=== PATIENT | male | born 1965 | race Caucasian/White ===

== ENCOUNTER 2016-11-18 18:08 | Observation (INO) | payer SELFPAY ==
[~2016-11-18] VITALS: Ht 180.3 cm; Wt 85.0 kg
[~2016-11-18 18:08] MED LIST: AMLO5TAB2 PO; ASPI81TA81 PO; ATOR40TA16 PO; BAYEMIS; CARV6.252 PO; GLUCTES27; METF500 PO; NITR1SUB3 SL; PLAV75TA29 PO; SERO400T PO; TRAZ150T75 PO; VIST50CA PO
[2016-11-18 18:22] VITALS: BP 156/97; PULSE 92; RESP 15; TEMP 99.8; O2SAT 98
[2016-11-18 18:24] VITALS: BP 156/97; PULSE 89; RESP 16; TEMP 99.8; O2SAT 98
[2016-11-18] MEDS ORDERED: ASPIRIN 325 MG TAB PO ONE (18:30)
[2016-11-18] MEDS ORDERED: SODIUM CHLORIDE 0.9% FLUSH 10 ML FLUSH IVF PRN (18:30)
[2016-11-18] MEDS ORDERED: NITROGLYCERIN 0.4 MG SL 25 TABS/BTL SL ONE (18:30)
[2016-11-18 18:34] VITALS: BP_SYST 152; BP_SYST 156; BP_DIAS 94; BP_DIAS 97; PULSE 89; RESP 16; TEMP 99.8; O2SAT 98
--- NOTE | 2016-11-18 19:00 | PD ---
HPI Chief Complaint: Chest Pain Time Seen by Provider: 18:55 Travel History International Travel<30 days: No Contact w/Intl Traveler<30days: No Traveled to known affect area: No History of Present Illness HPI 51-year-old male that presents to the ED for evaluation of chest pain. Patient comes here by bolus for evaluation of this. Patient has a chronic history of bipolar disorder, ACS with previous stents and A. fib. Per patient she also has a history of high blood pressure and high cholesterol. Per patient she also takes Plavix. States compliance with medications. Do not take an aspirin today. Per patient he said issues with nitroglycerin before when he drops his blood pressure too much. He prefers not to have it. Patient states that he continues to have the chest pain which is pressure-like. Does not radiate. No shortness of breath. No headache. No blurry vision or double vision. No numbness, tilling, weakness. Has no allergies to medication. States that the pain is severe 7 out of 10.*On 4:00 today. He has no machine icer as he states that he cannot get a machine icer because he has no insurance. PFSH Past Medical History Hx Anticoagulant Therapy: Yes Atrial Fibrillation: Yes (HX OF) Blood Disorders: No Bipolar Disorder: Yes Anxiety: Yes Depression: Yes Heart Rhythm Problems: Yes (a fib in the past) Cancer: Yes (skin - rt cheek squamous) Cardiac Catheterization: Yes (stents) Cardiovascular Problems: Yes High Cholesterol: Yes Chemotherapy: No Chest Pain: Yes Congestive Heart Failure: No Cerebrovascular Accident: Yes (2013) Diabetes: Yes (METFORMIN ) Patient Takes Glucophage: No Diminished Hearing: No Endocrine: Yes Gastrointestinal Disorders: No Genitourinary: No Hypertension: Yes Immune Disorder: No Inguinal Hernia: Yes Implanted Vascular Access Dvce: Yes (CARDIAC STENT) Insomnia: Yes Musculoskeletal: Yes (CHRONIC BACK PAIN) Neurologic: Yes ([id number]) Psychiatric: Yes (BIPOLAR/ANGER DISORDER) Reproductive: No Respiratory: No Immunizations Current: No (PT REFUSES ) Myocardial Infarction: Yes (X1) Radiation Therapy: No Triglycerides - High: Yes Past Surgical History Abdominal Surgery: Yes (lap hernia repair w/ mesh 2012 ) Body Medical Devices: mesh from hernia repair Cardiac Surgery: No Coronary Artery Bypass Graft: No Coronary Stent: Yes (X2) Pacemaker: Yes Other Surgery: Yes (HERNIA REPAIR) Social History Alcohol Use: No Tobacco Use: No (VAPORIZER) Substance Use: No Allergies-Medications (Allergen,Severity, Reaction): Coded Allergies: No Known Allergies (Unverified , 11/18/16) Reported Meds & Prescriptions Reported Meds & Active Scripts Active Amlodipine (Amlodipine Besylate) 5 Mg Tab 5 Mg PO DAILY Carvedilol 6.25 Mg Tab 6.25 Mg PO BID Atorvastatin (Atorvastatin Calcium) 40 Mg Tab 40 Mg PO HS Plavix (Clopidogrel Bisulfate) 75 Mg Tab 75 Mg PO DAILY Reported Nitro-Time (Nitroglycerin) Unknown Strength Caper Unknown Dose PO DAILY Clonazepam 0.5 Mg Tab 0.5 Mg PO BID PRN [place] Carbonate 300 Mg Cap 300 Mg PO TID Trazodone (Trazodone HCl) 300 Mg Tab 300 Mg PO HS Aspir-81 (Aspirin) 81 Mg Tabdr 81 Mg PO HS Seroquel (Quetiapine Fumarate) 400 Mg Tab 400 Mg PO BID Review of Systems Except as stated in HPI: all other systems reviewed are Neg Physical Exam Narrative GENERAL: SKIN: Warm and dry. HEAD: Atraumatic. Normocephalic. EYES: Pupils equal and round. No scleral icterus. No injection or drainage. ENT: No nasal bleeding or discharge. Mucous membranes pink and moist. Tongue is midline. No uvula deviation. NECK: Trachea midline. No JVD. CARDIOVASCULAR: Regular rate and rhythm. No murmurs, S3, S4. Chest pain is not reproducible with touch. RESPIRATORY: No accessory muscle use. Clear to auscultation. Breath sounds equal bilaterally. GASTROINTESTINAL: Abdomen soft, non-tender, nondistended. Hepatic and splenic margins not palpable. MUSCULOSKELETAL: Extremities without clubbing, cyanosis, or edema. No obvious deformities. Full range of motion of the upper and lower extremities bilaterally. 2+ pulses bilaterally. NEUROLOGICAL: Awake and alert. No obvious cranial nerve deficits. Motor grossly within normal limits. Five out of 5 muscle strength in the arms and legs. Normal speech. PSYCHIATRIC: Appropriate mood and affect; insight and judgment normal. Data Data Last Documented VS Vital Signs Date Time Temp Pulse Resp B/P Pulse Ox O2 Delivery O2 Flow Rate FiO2 11/18/16 18:34 99.8 89 16 156/97 98 Room Air 152/94 Orders Electrocardiogram (11/18/16 18:18) Basic Metabolic Panel (Bmp) (11/18/16 18:18) Ckmb (Isoenzyme) Profile (11/18/16 18:18) Complete Blood Count With Diff (11/18/16 18:18) Magnesium (Mg) (11/18/16 18:18) Prothrombin Time / Inr (Pt) (11/18/16 18:18) Act Partial Throm Time (Ptt) (11/18/16 18:18) Troponin I (11/18/16 18:18) Lipase (11/18/16 18:18) Chest, Single Ap (11/18/16 18:18) Ecg Monitoring (11/18/16 18:18) Bilateral Bp Monitoring (11/18/16 18:18) Iv Access Insert/Monitor (11/18/16 18:18) Oximetry (11/18/16 18:18) Oxygen Administration (11/18/16 18:18) Aspirin (Aspirin) (11/18/16 18:30) Sodium Chloride 0.9% Flush (Ns Flush) (11/18/16 18:30) Nitroglycerin Sl (Nitrostat Sl) (11/18/16 18:30) [place] (Li) (11/18/16 18:26) CKMB (11/18/16 18:50) CKMB% (11/18/16 18:50) Admit Order (Ed Use Only) (11/18/16 19:39) Activity Bed Rest With Brp (11/18/16 19:39) Vital Signs (Adult) Q4H (11/18/16 19:39) Cardiac Rhythm .As Directed (11/18/16 19:39) Notify Dr: Other .PRN (11/18/16 19:39) Notify DrAsael Parameters (11/18/16 19:39) Resp Oxygen Nasal Cannula (11/18/16 ) Ckmb (Isoenzyme) Profile (11/18/16 21:50) Ckmb (Isoenzyme) Profile (11/19/16 00:50) Troponin I (11/18/16 21:50) Troponin I (11/19/16 00:50) Electrocardiogram (11/18/16 21:50) Electrocardiogram (11/19/16 00:50) ^ Obtain (11/18/16 19:39) Sodium Chloride 0.9% Flush (Ns Flush) (11/18/16 19:45) Sodium Chloride 0.9% Flush (Ns Flush) (11/18/16 21:00) Acetaminophen (Tylenol) (11/18/16 19:45) Acetamin-Hydrocod 325-7.5 Mg ([place] 7.5 (11/18/16 19:45) Ondansetron Inj (Zofran Inj) (11/18/16 19:45) Finger Grip Machine Operator / Telemetry CONRADO.Q8H (11/18/16 19:39) Labs Laboratory Tests Test 11/18/16 18:50 White Blood Count 14.5 TH/MM3 Red Blood Count 4.95 MIL/MM3 Hemoglobin 15.5 GM/DL Hematocrit 44.8 % Mean Corpuscular Volume 90.4 FL Mean Corpuscular Hemoglobin 31.4 PG Mean Corpuscular Hemoglobin 34.7 % Concent Red Cell Distribution Width 14.0 % Platelet Count 287 TH/MM3 Mean Platelet Volume 8.3 FL Neutrophils (%) (Auto) 69.2 % Lymphocytes (%) (Auto) 22.7 % Monocytes (%) (Auto) 6.7 % Eosinophils (%) (Auto) 0.7 % Basophils (%) (Auto) 0.7 % Neutrophils # (Auto) 10.0 TH/MM3 Lymphocytes # (Auto) 3.3 TH/MM3 Monocytes # (Auto) 1.0 TH/MM3 Eosinophils # (Auto) 0.1 TH/MM3 Basophils # (Auto) 0.1 TH/MM3 CBC Comment DIFF FINAL Differential Comment Prothrombin Time 10.6 SEC Prothromb Time International 1.0 RATIO Ratio Activated Partial 27.2 SEC Thromboplast Time Sodium Level 133 MEQ/L Potassium Level 3.6 MEQ/L Chloride Level 102 MEQ/L Carbon Dioxide Level 25.1 MEQ/L Anion Gap 6 MEQ/L Blood Urea Nitrogen 8 MG/DL Creatinine 0.99 MG/DL Estimat Glomerular Filtration 80 ML/MIN Rate Random Glucose 192 MG/DL Calcium Level 9.4 MG/DL Magnesium Level 2.0 MG/DL Total Creatine Kinase 186 U/L Creatine Kinase MB 1.3 NG/ML Troponin I LESS THAN 0.02 NG/ML Lipase 327 U/L [place] Level 0.3 MEQ/L MDM Medical Decision Making Medical Screen Exam Complete: Yes Emergency Medical Condition: Yes Medical Record Reviewed: Yes Interpretation(s) EKG shows sinus rhythm with no sign of acute ischemia or arrhythmia read by me and attending. CBC & BMP Diagram 11/18/16 18:50 Lipase WNL Troponin and CKMB negative Last Impressions Chest X-Ray 11/18/168 Signed Impressions: Service Date/Time: Sunday, November 18, 2016 18:50 - CONCLUSION: No acute cardiopulmonary disease. Bubba Salinas MD Differential Diagnosis Chest pain versus a typical chest pain versus ACS versus pneumonia versus costochondritis versus angina Narrative Course 51-year-old male that presents to the ED for evaluation of chest pain. Patient was properly examined and was found to have signs and symptoms consistent with appears to be chest pain. Concerning for ACS. Labs and imaging were ordered. Patient was given aspirin here. Labs and imaging showed no sign of acute disease. Patient was reassured. At this time I do recommend admission to chest pain center for further workup. Patient does have risk factors including previous coronary artery disease, diabetes, hypertension, age, hyperlipidemia. Patient agrees to admission to the chest pain center. My attending Dr. Olsen evaluated the patient with me and agrees with admission. Diagnosis Primary Impression: Chest pain Qualified Code: R07.9 - Chest pain, unspecified type Admitting Information Admitting Physician Requests: Marvin Herzog Nov 18, 2016 19:00
[2016-11-18 19:10] LABS: BASOPHIL # 0.1 TH/MM3 (0-0.2); BASOPHIL % 0.7 % (0.0-2.0); EOSINOPHIL # 0.1 TH/MM3 (0-0.4); EOSINOPHIL % 0.7 % (0.0-4.0); HEMATOCRIT 44.8 % (39.0-51.0); HEMO FLAGS DIFF FINAL; LYMPH % 22.7 % (9.0-44.0); LYMPHOCYTE # 3.3 TH/MM3 (1.0-4.8); MEAN CELL VOLUME 90.4 FL (80.0-100.0); MEAN CORPUSCULAR HEMOGLOBIN 31.4 PG (27.0-34.0); MEAN CORPUSCULAR HGB CONC 34.7 % (32.0-36.0); MONO % 6.7 % (0.0-8.0); NEUT % 69.2 % (16.0-70.0); PLATELET COUNT 287 TH/MM3 (150-450); RED BLOOD COUNT 4.95 MIL/MM3 (4.50-5.90); WHITE BLOOD COUNT 14.5 TH/MM3 (4.0-11.0)
[2016-11-18] MEDS ORDERED: LITH300C2 PO (19:10)
[2016-11-18] MEDS ORDERED: TRAZ300T2 PO (19:10)
[2016-11-18] MEDS ORDERED: CLON0.5T PO (19:11)
[2016-11-18] MEDS ORDERED: NITR9CAP PO (19:12)
[2016-11-18 19:20] LABS: APTT (PATIENT) 27.2 SEC (24.3-30.1); PROTHROMBIN TIME - PATIENT 10.6 SEC (9.8-11.6)
[2016-11-18 19:22] LABS: ANION GAP 6 MEQ/L (5-15); BICARBONATE 25.1 MEQ/L (21.0-32.0); BLOOD UREA NITROGEN 8 MG/DL (7-18); CHLORIDE 102 MEQ/L (98-107); GLOMERULAR FILTRATION RATE 80 ML/MIN (>89); POTASSIUM 3.6 MEQ/L (3.5-5.1); SODIUM (NA) 133 MEQ/L (136-145)
[2016-11-18 19:27] LABS: CREATINE KINASE 186 U/L (39-308)
--- NOTE | 2016-11-18 19:35 | RADRPT ---
EXAM DATE/TIME: 11/18/2016 18:50 [facility] COMPARISON: CHEST SINGLE AP, March 28, 2016, 8:57. INDICATIONS : Chest Pain MEDICAL HISTORY : Stroke. Myocardial infarction. SURGICAL HISTORY : Coronary artery stent. ENCOUNTER: Initial ACUITY: 1 day PAIN SCORE: 7/10 LOCATION: Bilateral chest FINDINGS: The lungs are clear without infiltrate, nodule, or mass. There is no appreciable pleural effusion fo r technique. Heart and mediastinum are unremarkable. CONCLUSION: No acute cardiopulmonary disease. Bubba Salinas MD on November 18, 2016 at 19:34 Board Certified Radiologist. This report was verified electronically.
[2016-11-18 19:40] LABS: CKMB 1.3 NG/ML (0.5-3.6)
[2016-11-18] MEDS ORDERED: ACETAMINOPHEN 500 MG CPLT PO PRN (19:45)
[2016-11-18] MEDS ORDERED: SODIUM CHLORIDE 0.9% FLUSH 10 ML FLUSH IV FLUSH PRN (19:45)
[2016-11-18] MEDS ORDERED: ACETAMINOPHEN/HYDROcodone 325 MG/7.5 MG TAB PO PRN (19:45)
[2016-11-18] MEDS ORDERED: ONDANSETRON HCL 4 MG/2 ML VIAL IV PRN (19:45)
--- NOTE | 2016-11-18 19:53 | PD ---
Data Data Last Documented VS Vital Signs Date Time Temp Pulse Resp B/P Pulse Ox O2 Delivery O2 Flow Rate FiO2 11/18/16 18:34 99.8 89 16 156/97 98 Room Air 152/94 Orders Electrocardiogram (11/18/16 18:18) Basic Metabolic Panel (Bmp) (11/18/16 18:18) Ckmb (Isoenzyme) Profile (11/18/16 18:18) Complete Blood Count With Diff (11/18/16 18:18) Magnesium (Mg) (11/18/16 18:18) Prothrombin Time / Inr (Pt) (11/18/16 18:18) Act Partial Throm Time (Ptt) (11/18/16 18:18) Troponin I (11/18/16 18:18) Lipase (11/18/16 18:18) Chest, Single Ap (11/18/16 18:18) Ecg Monitoring (11/18/16 18:18) Bilateral Bp Monitoring (11/18/16 18:18) Iv Access Insert/Monitor (11/18/16 18:18) Oximetry (11/18/16 18:18) Oxygen Administration (11/18/16 18:18) Aspirin (Aspirin) (11/18/16 18:30) Sodium Chloride 0.9% Flush (Ns Flush) (11/18/16 18:30) Nitroglycerin Sl (Nitrostat Sl) (11/18/16 18:30) [place] (Li) (11/18/16 18:26) CKMB (11/18/16 18:50) CKMB% (11/18/16 18:50) Admit Order (Ed Use Only) (11/18/16 19:39) Activity Bed Rest With Brp (11/18/16 19:39) Vital Signs (Adult) Q4H (11/18/16 19:39) Cardiac Rhythm .As Directed (11/18/16 19:39) Notify Dr: Other .PRN (11/18/16 19:39) Notify Parameters (11/18/16 19:39) Resp Oxygen Nasal Cannula (11/18/16 ) Ckmb (Isoenzyme) Profile (11/18/16 21:50) Ckmb (Isoenzyme) Profile (11/19/16 00:50) Troponin I (11/18/16 21:50) Troponin I (11/19/16 00:50) Electrocardiogram (11/18/16 21:50) Electrocardiogram (11/19/16 00:50) ^ Obtain (11/18/16 19:39) Sodium Chloride 0.9% Flush (Ns Flush) (11/18/16 19:45) Sodium Chloride 0.9% Flush (Ns Flush) (11/18/16 21:00) Acetaminophen (Tylenol) (11/18/16 19:45) Acetamin-Hydrocod 325-7.5 Mg ([place] 7.5 (11/18/16 19:45) Ondansetron Inj (Zofran Inj) (11/18/16 19:45) Contact Center Representative / Telemetry CONRADO.Q8H (11/18/16 19:39) Labs Laboratory Tests Test 11/18/16 18:50 White Blood Count 14.5 TH/MM3 Red Blood Count 4.95 MIL/MM3 Hemoglobin 15.5 GM/DL Hematocrit 44.8 % Mean Corpuscular Volume 90.4 FL Mean Corpuscular Hemoglobin 31.4 PG Mean Corpuscular Hemoglobin 34.7 % Concent Red Cell Distribution Width 14.0 % Platelet Count 287 TH/MM3 Mean Platelet Volume 8.3 FL Neutrophils (%) (Auto) 69.2 % Lymphocytes (%) (Auto) 22.7 % Monocytes (%) (Auto) 6.7 % Eosinophils (%) (Auto) 0.7 % Basophils (%) (Auto) 0.7 % Neutrophils # (Auto) 10.0 TH/MM3 Lymphocytes # (Auto) 3.3 TH/MM3 Monocytes # (Auto) 1.0 TH/MM3 Eosinophils # (Auto) 0.1 TH/MM3 Basophils # (Auto) 0.1 TH/MM3 CBC Comment DIFF FINAL Differential Comment Prothrombin Time 10.6 SEC Prothromb Time International 1.0 RATIO Ratio Activated Partial 27.2 SEC Thromboplast Time Sodium Level 133 MEQ/L Potassium Level 3.6 MEQ/L Chloride Level 102 MEQ/L Carbon Dioxide Level 25.1 MEQ/L Anion Gap 6 MEQ/L Blood Urea Nitrogen 8 MG/DL Creatinine 0.99 MG/DL Estimat Glomerular Filtration 80 ML/MIN Rate Random Glucose 192 MG/DL Calcium Level 9.4 MG/DL Magnesium Level 2.0 MG/DL Total Creatine Kinase 186 U/L Creatine Kinase MB 1.3 NG/ML Troponin I LESS THAN 0.02 NG/ML Lipase 327 U/L [place] Level 0.3 MEQ/L MDM Supervised Visit with CHANO: Yes Narrative Course I, Dr. Olsen, have reviewed the advance practice practioner's documentation and am in agreement, met with the patient face to face, made the diagnosis, and the medical decision making was done by me. *My assessment and Findings: 51-year-old male with history of CAD with PCI 2, A. fib here with complaint of chest pain, primarily left-sided radiating up into his left shoulder and neck, slightly down to his left bicep region. This started approximately 4 PM today and is similar to his to previous heart attacks. Patient takes a long-acting nitroglycerin but does not have any short acting nitroglycerin at home. 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 Regular rate and rhythm, clear to auscultation bilaterally, no reproducible tenderness palpation on exam. Differential includes ACS, stable angina, atypical chest pain, anxiety and less likely PE or dissection. EKG shows sinus rhythm without notable ST or T-wave abnormalities and normal intervals. Laboratory workup unremarkable. Given patient's history Will admit to chest pain center [id number] troponins, EKG and provocative testing. Diagnosis Primary Impression: Chest pain Qualified Code: R07.9 - Chest pain, unspecified type Dana Olsen MD Nov 18, 2016 19:53
[2016-11-18] MEDS: SODIUM CHLORIDE 0.9% FLUSH 10 ML FLUSH IV FLUSH SCH (20:55)
[2016-11-18 21:00] VITALS: BP 124/85; PULSE 80; RESP 18; O2SAT 98
[2016-11-18] MEDS ORDERED: NITROGLYCERIN 2% OINT 1 GM PACKET TOPICAL ONE (21:15)
[2016-11-18 21:17] VITALS: BP 143/96; PULSE 81; RESP 18; TEMP 97.1; O2SAT 95
[2016-11-18 22:28] LABS: CREATINE KINASE 165 U/L (39-308)
[2016-11-18 22:40] LABS: CKMB 1.2 NG/ML (0.5-3.6)
[2016-11-18 23:46] VITALS: BP 136/84; PULSE 73; RESP 18; TEMP 97.5; O2SAT 96
[2016-11-19] VITALS (7 sets, daily range): BP systolic 117–132; BP diastolic 73–84; PULSE 68–80; RESP 17–19; TEMP 98–98.1; O2SAT 94–97
[2016-11-19] MEDS ORDERED: LITHIUM CARBONATE 300 MG TAB PO ONE (00:30)
[2016-11-19] MEDS ORDERED: traZODone HCL 100 MG TAB PO ONE (00:30)
[2016-11-19] MEDS ORDERED: QUEtiapine FUMARATE 200 MG TAB PO ONE (00:30)
[2016-11-19] MEDS ORDERED: clonazePAM 0.5 MG TAB PO ONE ×2 (00:30→11:45)
[2016-11-19 03:15] LABS: CREATINE KINASE 160 U/L (39-308)
[2016-11-19 03:27] LABS: CKMB 1.2 NG/ML (0.5-3.6)
--- NOTE | 2016-11-19 08:35 | HHI.HP ---
HPI Primary Care Physician No Primary Care Physician Chief Complaint Chest pain History of Present Illness 51-year-old male with known coronary artery disease including 2 cardiac stents , hypertension, hyperlipidemia, and type 2 diabetes presents to emergency room for further evaluation of chest pain. Onset yesterday afternoon at 4 PM. He was sitting outside in the shade talking with a friend. Location left anterior chest with instantaneous radiation to his left shoulder, left neck, and left arm. Also experiences intermittent fluttering. Pain described as a heavy pressure similar to his past heart attacks. Associated symptoms included nausea and diaphoresis. Duration has been constant waxing and waning in intensity. Describes a surge of sharp pain beginning in his left anterior chest stopping at his left elbow in addition to a heavy pressure. No known precipitating factors no known relieving factors. Review of Systems General: No fatigue,weakness, fever, chills, recent illness, or change in appetite. Has been in his general state of health. HEENT: No EDWARDS, no vision changes, no dysphasia CV: As stated above. Intermittent fluttering in left anterior chest. Intermittent bilateral leg pain during sleep, denies intermittent leg pain with ambulation. RESP: No SOB, cough, wheeze, recent URI, or history of asthma. GI: No nausea, vomiting, bowel changes, diarrhea, constipation, pain, melena, or blood in the stool. Intentional weight loss with dietary changes, down from #220 to #189 over many months : No dysuria or urgency. Frequency, he relates to age and needing his prostate examined. EXT: No lower leg edema, no parathesias MS: No discomfort or change in ROM NEURO: No change in memory, dizziness, difficulty with balance, LOC, motor/ sensory deficits PSYCH: History of bipolar disorder, no current anxiety, depression, or suicidal ideation SKIN: Skin cancer on right nasolabial fold, reports he was unable to follow up due to lack of insurance. Past Family Social History Allergies: Coded Allergies: No Known Allergies (Unverified , 11/18/16) Past Medical History Coronary artery disease, 2 cardiac stents, hypertension, hyperlipidemia, type 2 diabetes, CVA, bipolar, skin cancer, polycythemia Past Surgical History Hernia repair, back surgeryL4-L5, right wrist surgery Reported Medications Active Amlodipine (Amlodipine Besylate) 5 Mg Tab 5 Mg PO DAILY Carvedilol 6.25 Mg Tab 6.25 Mg PO BID Atorvastatin (Atorvastatin Calcium) 40 Mg Tab 40 Mg PO HS Plavix (Clopidogrel Bisulfate) 75 Mg Tab 75 Mg PO DAILY Nitro-Time (Nitroglycerin) Unknown Strength Caper Unknown Dose PO DAILY Clonazepam 0.5 Mg Tab 0.5 Mg PO BID PRN [place] Carbonate 300 Mg Cap 300 Mg PO TID Trazodone (Trazodone HCl) 300 Mg Tab 300 Mg PO HS Aspir-81 (Aspirin) 81 Mg Tabdr 81 Mg PO HS Seroquel (Quetiapine Fumarate) 400 Mg Tab 400 Mg PO BID Active Ordered Medications Current Medications Medications (Trade) Dose Ordered Sig/Mario Route Start Time Stop Time Status Last Admin (NS Flush) 2 ml BID IV FLUSH 11/18/16 21:00 11/18/16 20:55 (Tylenol) 500 mg Q4H PRN PO 11/18/16 19:45 ([place] 7.5-325 Mg) 1 tab Q4H PRN PO 11/18/16 19:45 (Zofran Inj) 4 mg Q6H PRN IV 11/18/16 19:45 Family History Noncontributory for early onset cardiovascular disease. Reports half-brother and half-sister have mitral valve disorders. Social History Known hypertension, hyperlipidemia, diabetes, and personal coronary artery disease. Quit smoking 8 months ago. Denies any alcohol or illegal drug use. Endorses an active lifestyle. Currently is enrolled [employer]. Resides in a custodial house currently. Past cardiac testing 06/16/2015 Lexiscan Conclusion mild global hypokinesis, EF 40%, non-ischemic 09/14/2014- Lexiscan-admitted to [facility] Lexiscan results reversible defect suggesting ischemia LCX. 09/15/2014 Cardiac catheterization (Dr. Santoyo)-Severe stenosis to first OM artery and moderate stenosis to LAD and RCA. PTCA and stent to first OM1. 09/17/2013 Cardiac catheterization- (Dr. Espinosa) Admitted to the emergency room as a non-STEMI, max troponin greater than 40, bare metal stent to OM1. Physical Exam Vital Signs Vital Signs Date Time Temp Pulse Resp B/P Pulse Ox O2 Delivery O2 Flow Rate FiO2 11/19/16 07:35 98.0 74 17 120/73 96 11/19/16 04:01 71 11/19/16 03:41 98.1 71 18 132/84 97 11/19/16 00:02 73 11/18/16 23:46 97.5 73 18 136/84 96 11/18/16 21:17 97.1 81 18 143/96 95 11/18/16 21:00 80 18 124/85 98 Room Air 11/18/16 18:34 99.8 89 16 156/97 98 Room Air 152/94 11/18/16 18:34 98 Room Air 11/18/16 18:34 98 Room Air 11/18/16 18:24 16 98 Room Air 11/18/16 18:24 99.8 89 16 156/97 98 Room Air 11/18/16 18:22 99.8 92 15 156/97 98 Physical Exam GENERAL: Alert WN, WD, NAD, pleasant, male HEAD: NC, AT EYES: Sclera clear, conjunctiva without injection, pupils equal and round ENT: Mucous membranes pink and moist, no nasal discharge or bleeding CV: RRR, without murmur, rub, gallop, no JVD, S1-S2 no S3-S4. No carotid bruits. RESP: Clear lungs throughout bilateral, no crackles, wheeze, rhonchi, symmetrical chest rise, nonlabored, able to speak in full sentences ABD: Soft, NT, ND, no masses, positive bowel tones EXT: Pulses +24, no dependent edema MS: Normal tone 4 extremities, nontender, no obvious deformities, full range of motion NEURO: CN II through CN XII grossly intact, motor strength 5/5, gait WNL PSYCH: A+O 3, pleasant affect, appropriate speech, appropriate mood and affect , insight and judgment SKIN: Normal turgor, normal texture, no lesions, no rashes, brisk cap refill, even hair distribution, abdominal scar, right nasolabial fold irregular shaped Laboratory Laboratory Tests Test 11/18/16 11/18/16 11/19/16 18:50 22:00 02:20 White Blood Count 14.5 Red Blood Count 4.95 Hemoglobin 15.5 Hematocrit 44.8 Mean Corpuscular Volume 90.4 Mean Corpuscular Hemoglobin 31.4 Mean Corpuscular Hemoglobin 34.7 Concent Red Cell Distribution Width 14.0 Platelet Count 287 Mean Platelet Volume 8.3 Neutrophils (%) (Auto) 69.2 Lymphocytes (%) (Auto) 22.7 Monocytes (%) (Auto) 6.7 Eosinophils (%) (Auto) 0.7 Basophils (%) (Auto) 0.7 Neutrophils # (Auto) 10.0 Lymphocytes # (Auto) 3.3 Monocytes # (Auto) 1.0 Eosinophils # (Auto) 0.1 Basophils # (Auto) 0.1 CBC Comment DIFF FINAL Differential Comment Prothrombin Time 10.6 Prothromb Time International 1.0 Ratio Activated Partial 27.2 Thromboplast Time Sodium Level 133 Potassium Level 3.6 Chloride Level 102 Carbon Dioxide Level 25.1 Anion Gap 6 Blood Urea Nitrogen 8 Creatinine 0.99 Estimat Glomerular Filtration 80 Rate Random Glucose 192 Calcium Level 9.4 Magnesium Level 2.0 Total Creatine Kinase 186 165 160 Creatine Kinase MB 1.3 1.2 1.2 Troponin I LESS THAN 0.02 LESS THAN 0.02 LESS THAN 0.02 Lipase 327 [place] Level 0.3 Result Diagram: 11/18/16184911/18/16 185 Imaging Last Impressions Chest X-Ray 11/18/161817 Signed Impressions: Service Date/Time: Friday, November 18, 2016 18:50 - CONCLUSION: No acute cardiopulmonary disease. Bubba Salinas MD Course EKGs NSR, Qwaves inferiorly, no st t changes Assessment and Plan Assessment and Plan #1 Chest pain-admitted to chest pain center. Ruled out with serial EKGs, cardiac enzymes, and monitored overnight. Seen and evaluated by Dr. Alex Cavanaugh. Proceed with chemical stress test this a.m. Patient is agreeable to plan of care. Naturally if unremarkable will discharge later this afternoon. #2 History of CAD-continue Plavix, carvedilol, and aspirin. Will reorder long acting nitrate once med rec updated. #3 Type II Diabetes-SSI low dose, encouraged him to restart metformin as previously ordered, increasing his daily activity, continue working on weight loss, and following a diabetic diet. #4 Bipolar-psychiatric medications continued. #5 Hyperlipidemiacontinue atorvastatin #6 Polycythemia vera-stable hemoglobin and hematocrit, strongly encouraged him to establish with a PCP for follow-up #7 Hypertension-continue amlodipine Consult for case management placed for possible admittance to [facility]. Angelika Leo Nov 19, 2016 08:34
--- NOTE | 2016-11-19 08:49 | PD.CARD.PN ---
Subjective Subjective Remarks CARDIOLOGY ATTENDING NOTE PT SEEN, EXAMINED AND REVIEWED WITH IGNITION MECHANIC. AGREE WITH HER DOCUMENTATION HPI: 51 YO WITH KNOWN CAD PRESENTED WITH FLUTTERING AND ATYPICAL CP. HE HAS HX OF A STENT TO THE OM IN '14, A REDILATION BY QUADRAT WITH ADDITIONAL DOCUMENTATION OF LAD DISEASE. HE HAS HAD EPISODIC AF. CURRENTLY THE FLUTTER WITH PAIN IN THE SHOULDER AND ARM, DIAPHORESIS AND BLANCHING WERE REMINISCENT OF PRIOR ISCHEMIA AND SCARED HIM RESULTING IN COMING TO ED. PMH: AF DM HTN LIPIDS POLYCYTHEMIA "STROKE" PSYCH (LONGSTANDING FOLLOWED AT [facility] O: HEENT SMALL SCAR R CHEEK WITH KNOWN SQUAMOUS CELL REMAINING EDENTULOUS UPPER, POOR DENTITION LOWER NECK NO JVD, M, N, BRUITS CHEST CLEAR TO AP, NO RWR CV RSR NO GRM ABD SCAR MID ABD EKG NEG LAB NEG CXR NEG A: CP TO BE EVALUATED BY PROTOCOL LONG PSYCH HS P: [place] AND IF NEG NEEDS OP FU (PENDING MEDICADE:) WITH CARD AND PCP. ALSO NEEDS CONTINUED CARE WITH S-M Objective Vital Signs / I&O Vital Signs Date Time Temp Pulse Resp B/P Pulse Ox O2 Delivery O2 Flow Rate FiO2 11/19/16 07:35 98.0 74 17 120/73 96 11/19/16 04:01 71 11/19/16 03:41 98.1 71 18 132/84 97 11/19/16 00:02 73 11/18/16 23:46 97.5 73 18 136/84 96 11/18/16 21:17 97.1 81 18 143/96 95 11/18/16 21:00 80 18 124/85 98 Room Air 11/18/16 18:34 99.8 89 16 156/97 98 Room Air 152/94 11/18/16 18:34 98 Room Air 11/18/16 18:34 98 Room Air 11/18/16 18:24 16 98 Room Air 11/18/16 18:24 99.8 89 16 156/97 98 Room Air 11/18/16 18:22 99.8 92 15 156/97 98 Laboratory Laboratory Tests Test 11/18/16 11/18/16 11/19/16 18:50 22:00 02:20 White Blood Count 14.5 TH/MM3 Red Blood Count 4.95 MIL/MM3 Hemoglobin 15.5 GM/DL Hematocrit 44.8 % Mean Corpuscular Volume 90.4 FL Mean Corpuscular Hemoglobin 31.4 PG Mean Corpuscular Hemoglobin 34.7 % Concent Red Cell Distribution Width 14.0 % Platelet Count 287 TH/MM3 Mean Platelet Volume 8.3 FL Neutrophils (%) (Auto) 69.2 % Lymphocytes (%) (Auto) 22.7 % Monocytes (%) (Auto) 6.7 % Eosinophils (%) (Auto) 0.7 % Basophils (%) (Auto) 0.7 % Neutrophils # (Auto) 10.0 TH/MM3 Lymphocytes # (Auto) 3.3 TH/MM3 Monocytes # (Auto) 1.0 TH/MM3 Eosinophils # (Auto) 0.1 TH/MM3 Basophils # (Auto) 0.1 TH/MM3 CBC Comment DIFF FINAL Differential Comment Prothrombin Time 10.6 SEC Prothromb Time International 1.0 RATIO Ratio Activated Partial 27.2 SEC Thromboplast Time Sodium Level 133 MEQ/L Potassium Level 3.6 MEQ/L Chloride Level 102 MEQ/L Carbon Dioxide Level 25.1 MEQ/L Anion Gap 6 MEQ/L Blood Urea Nitrogen 8 MG/DL Creatinine 0.99 MG/DL Estimat Glomerular Filtration 80 ML/MIN Rate Random Glucose 192 MG/DL Calcium Level 9.4 MG/DL Magnesium Level 2.0 MG/DL Total Creatine Kinase 186 U/L 165 U/L 160 U/L Creatine Kinase MB 1.3 NG/ML 1.2 NG/ML 1.2 NG/ML Troponin I LESS THAN 0.02 LESS THAN 0.02 LESS THAN 0.02 NG/ML NG/ML NG/ML Lipase 327 U/L [place] Level 0.3 MEQ/L Alex Cavanaugh MD Nov 19, 2016 08:49
[2016-11-19] MEDS ORDERED: amLODIPine BESYLATE 5 MG TAB PO SCH (09:00)
[2016-11-19] MEDS ORDERED: CARVEDILOL 6.25 MG TAB PO SCH (09:00)
[2016-11-19] MEDS ORDERED: CLOPIDOGREL 75 MG TAB PO SCH (09:00)
[2016-11-19] MEDS ORDERED: GLUCAGON 1 MG/ML VIAL OTHER PRN (09:30)
[2016-11-19] MEDS ORDERED: DEXTROSE 50% IN WATER 50 ML VIAL(D50) IV PRN (09:30)
[2016-11-19] MEDS ORDERED: REGADENOSON INJ 0.4 MG/5 ML SYR ONE (09:34)
[2016-11-19] MEDS: SODIUM CHLORIDE 0.9% FLUSH 10 ML FLUSH IV FLUSH SCH (10:50)
[2016-11-19] MEDS ORDERED: INSULIN ASPART SUPPLEMENTAL SCALE SQ SCH (11:00)
--- NOTE | 2016-11-19 12:17 | RADRPT ---
EXAM DATE/TIME: 11/19/2016 09:06 [place] COMPARISON: MYOCARDIAL PERF PHARM SPECT, GATED W/EF, June 16, 2015, 9:21. INDICATIONS : Chest pain for 1 day. Myocardial infarction. Atrial fibrillation. DOSE: 25.9 mCi Tc99m Myoview at stress. 8.1 mCi Tc99m Myoview at rest. 0.4 mg Lexiscan STRESS SYMPTOMS: Headache. EJECTION FRACTION: 56% MEDICAL HISTORY : Carcinoma, squamous cell. Stroke SURGICAL HISTORY : Pacemaker. Coronary artery stent. Inguinal hernia repair. ENCOUNTER: Initial ACUITY: 1 day PAIN SCALE: 2/10 LOCATION: Bilateral chest TECHNIQUE: The patient underwent pharmacologic stress with infusion of prescribed dose. Continuous ECG tracing was monitored during stress. Gated SPECT imaging was performed after stress and conventional SPECT i maging was performed at rest. The examination was performed on a SPECT/CT scanner, both attenuation and non-corrected datasets were reviewed. FINDINGS: DISTRIBUTION: The maximum perfused segment at stress is in the anterolateral wall. PERFUSION STUDY: The pattern of perfusion at stress is within normal limits. GATED STUDY: There is intact wall motion and thickening without hypokinetic or dyskinetic segments. CONCLUSION: No evidence of fixed or reversible perfusion abnormalities. Normal ejection fraction with no significant wall motion abnormality. RISK CATEGORY: Low (<1% Annual Mortality Rate) [place] MD on November 19, 2016 at 12:13 Board Certified Radiologist. This report was verified electronically.
[2016-11-19] MEDS ORDERED: AMLO5TAB2 PO (12:25)
[2016-11-19] MEDS ORDERED: PLAV75TA29 PO (12:25)
[2016-11-19] MEDS ORDERED: CARV6.252 PO (12:25)
--- NOTE | 2016-11-19 12:26 | HHI.DCPOC ---
Discharge Care Plan Diagnosis: (1) Atypical chest pain (2) Hypertension (3) Dyslipidemia (4) CAD (coronary artery disease) Goals to Promote Your Health * To prevent worsening of your condition and complications * To maintain your health at the optimal level Directions to Meet Your Goals Take your medications as prescribed Follow your dietary instruction Follow activity as directed Keep your appointments as scheduled Take your immunizations and boosters as scheduled If your symptoms worsen call your PCP, if no PCP go to Urgent Care Center or Emergency Room Smoking is Dangerous to Your Health. Avoid second hand smoke Call the 24-hour hour crisis hotline for domestic abuse at Angelika LeoP Nov 19, 2016 12:26
[2016-11-19] MEDS ORDERED: ATOR40TA16 PO (12:38)
--- NOTE | 2016-11-19 15:38 | EKG ---
Date Performed: 11/19/2016 Time Performed: 01:03:12 PTAGE: 51 years EKG: Sinus rhythm NORMAL TRACING PREVIOUS TRACING : 11/18/2016 21.49 DOCTOR: Alex Cavanaugh Interpretating Date/Time 11/19/2016 15:38:16
--- NOTE | 2016-11-19 15:40 | EKG ---
Date Performed: 11/18/2016 Time Performed: 21:49:00 PTAGE: 51 years EKG: Sinus rhythm WITH FIRST DEGREE AV BLOCK POSSIBLE INFERIOR MYOCARDIAL INFARCTION ABNORMAL ECG NO SIG CHANGE PREVIOUS TRACING : 11/18/2016 18.26 DOCTOR: Alex Cavanaugh Interpretating Date/Time 11/19/2016 15:38:55
--- NOTE | 2016-11-19 15:41 | TR ---
Date Performed: 11/19/2016 Time Performed: 09:48:11 DOCTOR: Alex Cavanaugh DRUG LIST: PLAVIX COREG ASA CLINICAL HISTORY: CVA CARDIAC STENTS DIABETES CHEST PAIN PREVIOUS MO REASON FOR TEST: REASON FOR ENDING: OBSERVATION: CONCLUSION: Lexiscan stress test was performed under standard four minute protocol. Radionuclide was injected one minute prior to ending the test. No electrocardiographic abormalities were present to suggest ischemia. Nuclear imaging and interpretation are pending. COMMENTS:
--- NOTE | 2016-11-19 15:41 | EKG ---
Date Performed: 11/18/2016 Time Performed: 18:26:15 PTAGE: 51 years EKG: Sinus rhythm POSSIBLE OLD INFERIOR MYOCARDIAL INFARCTION ABNORMAL ECG NO SIG CHANGE PREVIOUS TRACING : 03/28/2016 14.46 DOCTOR: Alex Cavanaugh Interpretating Date/Time 11/19/2016 15:39:34
[2016-11-19] MEDS ORDERED: ATORVASTATIN 40 MG TAB PO SCH (21:00)
== END 2016-11-19 15:57 | disposition home or self-care (01) ==
LOC: NEPE 18:08 → NEDA 19:44 → NEPFCDU 21:14
PROVIDERS: ADMIT Internal Medicine Interventional Cardiology; ATTEND Internal Medicine Interventional Cardiology
DX: R07.89 Other chest pain (principal); E78.5 Hyperlipidemia, unspecified; D45 Polycythemia vera; R11.0 Nausea; R61 Generalized hyperhidrosis; M54.2 Cervicalgia; M79.602 Pain in left arm; R51 Headache; I44.0 Atrioventricular block, first degree; R94.31 Abnormal electrocardiogram [ECG] [EKG]; I10 Essential (primary) hypertension; I25.10 Atherosclerotic heart disease of native coronary artery without angina pectoris; I25.2 Old myocardial infarction; I48.91 Unspecified atrial fibrillation; E78.00 Pure hypercholesterolemia, unspecified; E11.9 Type 2 diabetes mellitus without complications; M54.9 Dorsalgia, unspecified; G89.29 Other chronic pain; F31.9 Bipolar disorder, unspecified; F41.9 Anxiety disorder, unspecified; Z95.5 Presence of coronary angioplasty implant and graft; Z79.899 Other long term (current) drug therapy; Z79.82 Long term (current) use of aspirin; Z79.02 Long term (current) use of antithrombotics/antiplatelets; Z87.891 Personal history of nicotine dependence; Z86.73 Personal history of transient ischemic attack (TIA), and cerebral infarction without residual deficits; Z85.828 Personal history of other malignant neoplasm of skin
CPT/HCPCS: 71010; 78452; 80048; 80178; 82550; 82552; 82948; 83690; 83735; 84484; 85025; 85610; 85730; 93005; 93017; 99285; A9502; G0378; J2785

== ENCOUNTER → 2016-12-27 | Outpatient (CLI) | payer OTHER ==
[~2016-12-27] MED LIST changes: -BAYEMIS; +CLON0.5T PO; +GLIP5TAB8 PO; +LITH300C2 PO; +METF1000 PO; -METF500 PO; +NITR1SUB2 SL; -NITR1SUB3 SL; +NITR9CAP PO; -TRAZ150T75 PO; +TRAZ300T2 PO; -VIST50CA PO
[2016-12-27 11:29] LABS: HEMATOCRIT 47.6 % (39.0-51.0); MEAN CORPUSCULAR HEMOGLOBIN 31.1 PG (27.0-34.0); MEAN CORPUSCULAR HGB CONC 33.8 % (32.0-36.0); PLATELET COUNT 343 TH/MM3 (150-450); RED BLOOD COUNT 5.17 MIL/MM3 (4.50-5.90); RED CELL DISTRIBUTION WIDTH 13.2 % (11.6-17.2); REVIEW FLAG FINAL; WHITE BLOOD COUNT 11.6 TH/MM3 (4.0-11.0)
[2016-12-27 11:38] LABS: BLOOD UREA NITROGEN 7 MG/DL (7-18); GLOMERULAR FILTRATION RATE 78 ML/MIN (>89)
[2016-12-27 11:39] LABS: ALT (GPT) 35 U/L (12-78); ANION GAP 6 MEQ/L (5-15); AST (GOT) 21 U/L (15-37); BICARBONATE 26.2 MEQ/L (21.0-32.0); CHLORIDE 103 MEQ/L (98-107); GLUCOSE,FASTING 174 MG/DL (74-99); SODIUM (NA) 135 MEQ/L (136-145)
[2016-12-27 11:48] LABS: ALKALINE PHOSPHATASE 112 U/L (45-117); HDL CHOLESTEROL 38.9 MG/DL (40.0-60.0); LDL CHOLESTEROL 136 MG/DL (0-99); TOTAL BILIRUBIN ADULT 0.5 MG/DL (0.2-1.0)
[2016-12-27 17:02] LABS: HEMOGLOBIN A1a 1.2 %; HEMOGLOBIN A1b 2.3 %; HEMOGLOBIN Ao 81.3 %; HEMOGLOBIN LA1C 2.6 %
== END ==
LOC: CLAB 10:45
PROVIDERS: ATTEND Nurse Practitioner Family
DX: E78.2 Mixed hyperlipidemia (principal); E11.9 Type 2 diabetes mellitus without complications; D45 Polycythemia vera
CPT/HCPCS: 36415; 80053; 80061; 83036; 84443; 85027

== ENCOUNTER → 2017-02-12 | Outpatient (CLI) | payer OTHER | LOC: CLAB 11:15 | DX: F31.32 Bipolar disorder, current episode depressed, moderate (principal); Z79.899 Other long term (current) drug therapy | CPT/HCPCS: 36415; 80178 ==

== ENCOUNTER 2017-03-06 13:18 | Emergency (ER) | payer OTHER ==
[~2017-03-06] VITALS: Ht 180.3 cm; Wt 91.0 kg
[2017-03-06 13:35] VITALS: BP 154/88; PULSE 64; RESP 18; TEMP 97.9; O2SAT 98
[2017-03-06 13:38] VITALS: BP 154/88; PULSE 67; RESP 16; O2SAT 97
--- NOTE | 2017-03-06 13:58 | PD ---
HPI Chief Complaint: Psychiatric Symptoms Time Seen by Provider: 13:39 Travel History International Travel<30 days: No Contact w/Intl Traveler<30days: No Traveled to known affect area: No History of Present Illness HPI Patient is a 51-year-old male who presents to emergency room under a Solomon act. Patient was at [facility] today and expressed suicidal ideations. Patient reports that he is very depressed, reports that he feels as if he has nothing to live for, reports that he has thoughts of jumping in front of a train to commit suicide. Patient denies any use of drugs or alcohol, reports that he has tried to commit suicide in the past. Patient contracts for safety at this time. Patient also reports that he has been compliant with his medications. PFSH Past Medical History Hx Anticoagulant Therapy: Yes (PLAVIX) Atrial Fibrillation: Yes (HX OF) Blood Disorders: No Bipolar Disorder: Yes Anxiety: Yes Depression: Yes Heart Rhythm Problems: Yes (a fib in the past) Cancer: Yes (skin - rt cheek squamous) Cardiovascular Problems: Yes (HYPERTENSION) High Cholesterol: Yes Chemotherapy: No Chest Pain: Yes Congestive Heart Failure: No Cerebrovascular Accident: Yes (2013) Diabetes: Yes Patient Takes Glucophage: No Diminished Hearing: No Endocrine: Yes Gastrointestinal Disorders: No Genitourinary: No Hypertension: Yes Immune Disorder: No Inguinal Hernia: Yes Implanted Vascular Access Dvce: Yes (CARDIAC STENT) Insomnia: Yes Musculoskeletal: Yes (CHRONIC BACK PAIN) Neurologic: Yes ([id number]) Psychiatric: Yes (BIPOLAR/ANGER DISORDER) Reproductive: No Respiratory: No Immunizations Current: No (PT REFUSES ) Myocardial Infarction: Yes (X1) Radiation Therapy: No Triglycerides - High: Yes Influenza Vaccination: No Past Surgical History Abdominal Surgery: Yes (lap hernia repair w/ mesh 2012 ) Body Medical Devices: mesh from hernia repair Cardiac Surgery: No Coronary Artery Bypass Graft: No Coronary Stent: Yes (X2) Pacemaker: Yes Other Surgery: Yes (HERNIA REPAIR) Social History Alcohol Use: Yes (OCCASIONALLY) Tobacco Use: Yes (1/2 PPD) Substance Use: No Allergies-Medications (Allergen,Severity, Reaction): Coded Allergies: No Known Allergies (Unverified Adverse Reaction, Unknown, 03/06/17) Reported Meds & Prescriptions Reported Meds & Active Scripts Active Metformin (Metformin HCl) 1,000 Mg Tab 1,000 Mg PO BIDPC With meals Glipizide 5 Mg Tab 5 Mg PO BIDAC Take 30 minutes before a meal [place] Next Blood Test Strips (Blood Glucose Test Strips) 1 Anneliese Anneliese Strip .ROUTE DAILY Nitroglycerin SL (Nitroglycerin) 0.3 Mg Subl 0.3 Mg SL DIRECTED PRN ONE TABLET UNDER THE TONGUE NEEDED FOR CHEST PAIN, MAY REPEAT EVERY FIVE MINUTES FOR A TOTAL OF 3 DOSES OR CALL 911 IF NO RELIEF Atorvastatin (Atorvastatin Calcium) 40 Mg Tab 40 Mg PO HS Amlodipine (Amlodipine Besylate) 5 Mg Tab 5 Mg PO DAILY Carvedilol 6.25 Mg Tab 6.25 Mg PO BID Plavix (Clopidogrel Bisulfate) 75 Mg Tab 75 Mg PO DAILY Reported Nitro-Time (Nitroglycerin) Unknown Strength Caper Unknown Dose PO DAILY Clonazepam 0.5 Mg Tab 0.5 Mg PO BID PRN [place] Carbonate 300 Mg Cap 300 Mg PO TID Trazodone (Trazodone HCl) 300 Mg Tab 300 Mg PO HS Aspir-81 (Aspirin) 81 Mg Tabdr 81 Mg PO HS Seroquel (Quetiapine Fumarate) 400 Mg Tab 400 Mg PO BID Review of Systems General / Constitutional: No: Fever Eyes: No: Visual changes HENT: No: Headaches Cardiovascular: No: Chest Pain or Discomfort Respiratory: No: Shortness of Breath Gastrointestinal: No: Abdominal Pain Genitourinary: No: Dysuria Musculoskeletal: No: Pain Skin: No Rash Neurologic: No: Weakness Psychiatric: Positive: Anxiety, Depression, Suicidal Ideations, No: Substance Abuse, Homicidal Ideation Endocrine: No: Polydipsia Hematologic/Lymphatic: No: Easy Bruising Physical Exam Narrative GENERAL: NAD SKIN: Focused skin assessment warm/dry. HEAD: Atraumatic. Normocephalic. EYES: Pupils equal and round. No scleral icterus. No injection or drainage. ENT: No nasal bleeding or discharge. Mucous membranes pink and moist. NECK: Trachea midline. No JVD. CARDIOVASCULAR: Regular rate and rhythm. No murmur appreciated. RESPIRATORY: No accessory muscle use. Clear to auscultation. Breath sounds equal bilaterally. GASTROINTESTINAL: Abdomen soft, non-tender, nondistended. Hepatic and splenic margins not palpable. MUSCULOSKELETAL: No obvious deformities. No clubbing. No cyanosis. No edema. NEUROLOGICAL: Awake and alert. No obvious cranial nerve deficits. Motor grossly within normal limits. Normal speech. PSYCHIATRIC: Depressed mood and affect; +SI, -HI Data Data Last Documented VS Vital Signs Date Time Temp Pulse Resp B/P (MAP) Pulse Ox O2 Delivery O2 Flow Rate FiO2 03/06/17 13:38 67 16 154/88 (110) 97 Room Air 03/06/17 13:35 97.9 Orders Orders Complete Blood Count With Diff (03/06/17 13:39) Comprehensive Metabolic Panel (03/06/17 13:39) Psych Screen (03/06/17 13:39) Drug Screen, Random Urine (03/06/17 13:39) Alcohol (Ethanol) (03/06/17 13:39) Salicylates (Aspirin) (03/06/17 13:39) Tylenol (Acetaminophen) (03/06/17 13:39) [place] (Li) (03/06/17 13:42) MDM Medical Decision Making Medical Screen Exam Complete: Yes Emergency Medical Condition: Yes Medical Record Reviewed: Yes Interpretation(s) Vital Signs Date Time Temp Pulse Resp B/P (MAP) Pulse Ox O2 Delivery O2 Flow Rate FiO2 03/06/17 13:38 67 16 154/88 (110) 97 Room Air 03/06/17 13:35 97.9 64 18 154/88 (110) 98 Differential Diagnosis Suicidal ideation, depression Narrative Course Psychiatric screening labs are ordered, once labs have resulted, will clear for psychiatric screening. Willow Wagner DO Mar 06, 2017 13:58
[2017-03-06 14:28] LABS: AUTOMATED NEUTROPHIL # 7.8 TH/MM3 (1.8-7.7); BASOPHIL # 0.1 TH/MM3 (0-0.2); BASOPHIL % 1.1 % (0.0-2.0); EOSINOPHIL # 0.1 TH/MM3 (0-0.4); EOSINOPHIL % 0.5 % (0.0-4.0); HEMATOCRIT 49.5 % (39.0-51.0); HEMO FLAGS DIFF FINAL; LYMPH % 28.8 % (9.0-44.0); LYMPHOCYTE # 3.5 TH/MM3 (1.0-4.8); MEAN CELL VOLUME 93.9 FL (80.0-100.0); MEAN CORPUSCULAR HEMOGLOBIN 31.8 PG (27.0-34.0); MEAN CORPUSCULAR HGB CONC 33.9 % (32.0-36.0); NEUT % 63.6 % (16.0-70.0); PLATELET COUNT 325 TH/MM3 (150-450); RED BLOOD COUNT 5.27 MIL/MM3 (4.50-5.90); RED CELL DISTRIBUTION WIDTH 13.4 % (11.6-17.2); WHITE BLOOD COUNT 12.3 TH/MM3 (4.0-11.0)
[2017-03-06 14:46] LABS: ALKALINE PHOSPHATASE 98 U/L (45-117); TOTAL BILIRUBIN ADULT 0.7 MG/DL (0.2-1.0)
[2017-03-06 15:02] LABS: ACETAMINOPHEN LESS THAN 2.0 MCG/ML (10.0-30.0); ALCOHOL LESS THAN 3 MG/DL (0-5); ALT (GPT) 76 U/L (12-78); ANION GAP 6 MEQ/L (5-15); AST (GOT) 62 U/L (15-37); BICARBONATE 27.8 MEQ/L (21.0-32.0); BLOOD UREA NITROGEN 4 MG/DL (7-18); CHLORIDE 103 MEQ/L (98-107); GLOMERULAR FILTRATION RATE 74 ML/MIN (>89); POTASSIUM 4.2 MEQ/L (3.5-5.1); SODIUM (NA) 137 MEQ/L (136-145)
[2017-03-06] MEDS: CARVEDILOL 6.25 MG TAB PO SCH (21:00)
[2017-03-06] MEDS ORDERED: traZODone HCL 100 MG TAB PO SCH (21:00)
[2017-03-06] MEDS: traZODone HCL 50 MG TAB PO SCH (21:30)
[2017-03-06] MEDS: QUEtiapine FUMARATE 200 MG TAB PO SCH (21:30)
[2017-03-07 06:02] VITALS: BP 119/67; PULSE 69; RESP 18
[2017-03-07] MEDS ORDERED: glipiZIDE 5 MG TAB PO SCH (07:00)
[2017-03-07] MEDS ORDERED: CLOPIDOGREL 75 MG TAB PO ONE (08:15)
[2017-03-07] MEDS ORDERED: metFORMIN HCL 500 MG TAB PO SCH (09:00)
[2017-03-07] MEDS: QUEtiapine FUMARATE 200 MG TAB PO SCH (09:02)
[2017-03-07] MEDS: traZODone HCL 50 MG TAB PO SCH (09:02)
[2017-03-07] MEDS: LITHIUM CARBONATE 300 MG CAP PO SCH ×2 (09:03→12:54)
[2017-03-07] MEDS: CARVEDILOL 6.25 MG TAB PO SCH (09:03)
[2017-03-07] MEDS ORDERED: PLAV75TA29 PO (09:41)
--- NOTE | 2017-03-07 12:42 | PD ---
History of Present Illness Chief Complaint: Psychiatric Symptoms Time Seen by Provider: 12:40 Travel History International Travel<30 Days: No Contact w/Intl Traveler<30days: No Known affected area: No Legal Status Legal Status: Solomon Act Solomon Act Signed By: MENTAL HEALTH COUNSELOR History of Present Illness: 51-year-old male presents under a Solomon act for suicidal ideation and plan of stepping in front of a train. Patient has been here approximately 24 hours, observed and evaluated. He is calm, somewhat pleasant and cooperative. He adamantly and repeatedly denies any suicidal or homicidal ideation, plan or intent at this time. He would like to go home and be treated on an outpatient basis. His cognition is intact and he has no psychotic symptoms. He is not intoxicated with any substance. He is verbally anne for safety and he is competent to do so. PFSH Past Medical History Hx Anticoagulant Therapy: Yes (PLAVIX) Atrial Fibrillation: Yes (HX OF) Blood Disorders: No Bipolar Disorder: Yes Anxiety: Yes Depression: Yes Heart Rhythm Problems: Yes (a fib in the past) Cancer: Yes (skin - rt cheek squamous) Cardiovascular Problems: Yes (HYPERTENSION) High Cholesterol: Yes Chemotherapy: No Chest Pain: Yes Congestive Heart Failure: No Cerebrovascular Accident: Yes (2013) Diabetes: Yes Patient Takes Glucophage: No Diminished Hearing: No Endocrine: Yes Gastrointestinal Disorders: No Genitourinary: No Hypertension: Yes Immune Disorder: No Inguinal Hernia: Yes Implanted Vascular Access Dvce: Yes (CARDIAC STENT) Insomnia: Yes Musculoskeletal: Yes (CHRONIC BACK PAIN) Neurologic: Yes ([id number]) Psychiatric: Yes (BIPOLAR/ANGER DISORDER) Reproductive: No Respiratory: No Immunizations Current: No (PT REFUSES ) Myocardial Infarction: Yes (X1) Radiation Therapy: No Triglycerides - High: Yes Influenza Vaccination: No Past Surgical History Abdominal Surgery: Yes (lap hernia repair w/ mesh 2012 ) Body Medical Devices: mesh from hernia repair Cardiac Surgery: No Coronary Artery Bypass Graft: No Coronary Stent: Yes (X2) Pacemaker: Yes Other Surgery: Yes (HERNIA REPAIR) Psychiatric History Psychiatric History Hx Psychiatric Treatment: Patient has an extensive psych history. This physician does not see any significant objective clinical evidence of bipolar disorder or other mood disorder at this time. 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 History of Inpatient Treatment: Yes Guns or firearms in home: No Social History Hx Alcohol Use: Yes (OCCASIONALLY) Hx Tobacco Use: Yes (1/2 PPD) Hx Substance Use: No Hx of Substance Use Treatment: No Allergies-Medications (Allergen,Severity, Reaction): Coded Allergies: No Known Allergies (Unverified Allergy, Unknown, 03/06/17) Reported Meds & Prescriptions Reported Meds & Active Scripts Active Plavix (Clopidogrel Bisulfate) 75 Mg Tab 75 Mg PO DAILY Metformin (Metformin HCl) 1,000 Mg Tab 1,000 Mg PO BIDPC With meals Glipizide 5 Mg Tab 5 Mg PO BIDAC Take 30 minutes before a meal Nitroglycerin SL (Nitroglycerin) 0.3 Mg Subl 0.3 Mg SL DIRECTED PRN ONE TABLET UNDER THE TONGUE NEEDED FOR CHEST PAIN, MAY REPEAT EVERY FIVE MINUTES FOR A TOTAL OF 3 DOSES OR CALL 911 IF NO RELIEF Atorvastatin (Atorvastatin Calcium) 40 Mg Tab 40 Mg PO HS Amlodipine (Amlodipine Besylate) 5 Mg Tab 5 Mg PO DAILY Carvedilol 6.25 Mg Tab 6.25 Mg PO BID Reported Nitro-Time (Nitroglycerin) Unknown Strength Caper Unknown Dose PO DAILY Clonazepam 0.5 Mg Tab 0.5 Mg PO BID PRN [place] Carbonate 300 Mg Cap 300 Mg PO TID Trazodone (Trazodone HCl) 300 Mg Tab 150 Mg PO BID Aspir-81 (Aspirin) 81 Mg Tabdr 81 Mg PO HS Seroquel (Quetiapine Fumarate) 400 Mg Tab 400 Mg PO BID Review of Systems Except as stated in HPI: all other systems reviewed are Neg Mental Status Examination Appearance: Appropriate Consciousness: Alert Orientation: x4 Motor Activity: Normal gait Speech: Unremarkable Language: Adequate Fund of Knowledge: Adequate Attention and Concentration: Adequate Memory: Unremarkable Mood: Appropriate Affect: Appropriate Thought Process & Associations: Intact Thought Content: Appropriate Hallucination Type: None Delusion Type: None Suicidal Ideation: No Suicidal Plan: No Suicidal Intention: No Homicidal Ideation: No Homicidal Plan: No Homicidal Intention: No Insight: Adequate Judgment: Adequate MDM Medical Decision Making Medical Record Reviewed: Yes Assessment/Plan Patient interviewed at bedside, medical record reviewed and case discussed with nurse Mendoza. This physician feels the patient does not qualify for Solomon acted this time and does not qualify for involuntary psychiatric hospitalization. Patient is requesting that he be discharged home and that he will follow up on an outpatient basis. As he is a competent individual and least restrictive alternative applies, he is being discharged home. Orders Orders Complete Blood Count With Diff (03/06/17 13:39) Comprehensive Metabolic Panel (03/06/17 13:39) Psych Screen (03/06/17 13:39) Drug Screen, Random Urine (03/06/17 13:39) Alcohol (Ethanol) (03/06/17 13:39) Salicylates (Aspirin) (03/06/17 13:39) Tylenol (Acetaminophen) (03/06/17 13:39) [place] (Li) (03/06/17 13:42) Diet Regular Basic (03/06/17 Dinner) Carvedilol (Coreg) (03/06/17 21:00) Glipizide (Glucotrol) (03/07/17 07:00) [place] Carbonate ([place] Carbonate) (03/07/17 09:00) Metformin (Glucophage) (03/07/17 09:00) Trazodone (Desyrel) (03/06/17 21:30) Quetiapine (Seroquel) (03/06/17 21:30) Clopidogrel (Plavix) (03/07/17 08:15) Diet Regular Basic (03/07/17 Breakfast) Diet Regular Basic (03/07/17 Lunch) Results Vital Signs Date Time Temp Pulse Resp B/P (MAP) Pulse Ox O2 Delivery O2 Flow Rate FiO2 03/07/17 06:02 69 18 119/67 (84) 03/06/17 15:32 03/06/17 13:38 67 16 154/88 (110) 97 Room Air 03/06/17 13:35 97.9 64 18 154/88 (110) 98 Laboratory Tests Test 03/06/17 13:45 03/06/17 14:00 White Blood Count 12.3 Red Blood Count 5.27 Hemoglobin 16.8 Hematocrit 49.5 Mean Corpuscular Volume 93.9 Mean Corpuscular Hemoglobin 31.8 Mean Corpuscular Hemoglobin Concent 33.9 Red Cell Distribution Width 13.4 Platelet Count 325 Mean Platelet Volume 8.1 Neutrophils (%) (Auto) 63.6 Lymphocytes (%) (Auto) 28.8 Monocytes (%) (Auto) 6.0 Eosinophils (%) (Auto) 0.5 Basophils (%) (Auto) 1.1 Neutrophils # (Auto) 7.8 Lymphocytes # (Auto) 3.5 Monocytes # (Auto) 0.7 Eosinophils # (Auto) 0.1 Basophils # (Auto) 0.1 CBC Comment DIFF FINAL Differential Comment Blood Urea Nitrogen 4 Creatinine 1.06 Random Glucose 115 Total Protein 8.3 Albumin 4.1 Calcium Level 9.5 Alkaline Phosphatase 98 Aspartate Amino Transf (AST/SGOT) 62 Alanine Aminotransferase (ALT/SGPT) 76 Total Bilirubin 0.7 Sodium Level 137 Potassium Level 4.2 Chloride Level 103 Carbon Dioxide Level 27.8 Anion Gap 6 Estimat Glomerular Filtration Rate 74 Salicylates Level 3.3 Acetaminophen Level LESS THAN 2.0 [place] Level 0.4 Ethyl Alcohol Level LESS THAN 3 Urine Opiates Screen NEG Urine Barbiturates Screen NEG Urine Amphetamines Screen NEG Urine Benzodiazepines Screen NEG Urine Cocaine Screen NEG Urine Cannabinoids Screen NEG Diagnosis Primary Impression: Adjustment disorder with mixed disturbance of emotions and conduct Prescriptions Clopidogrel (Plavix) 75 Mg Tab 75 MG PO DAILY for Blood Clot Prevention, #5 TAB 4 Refills Prov: Alfredo Khan MD 03/07/17 Wilfred Menezes MD Mar 07, 2017 12:42
[2017-03-07 13:00] VITALS: BP 119/67; PULSE 69; RESP 18
--- NOTE | 2017-03-07 13:14 | PD ---
Physical Exam Time Seen by Provider: 13:00 Data Data Last Documented VS Vital Signs Date Time Temp Pulse Resp B/P (MAP) Pulse Ox O2 Delivery O2 Flow Rate FiO2 03/07/17 13:00 69 18 119/67 (84) Room Air 03/06/17 13:38 97 03/06/17 13:35 97.9 Orders Orders Complete Blood Count With Diff (03/06/17 13:39) Comprehensive Metabolic Panel (03/06/17 13:39) Psych Screen (03/06/17 13:39) Drug Screen, Random Urine (03/06/17 13:39) Alcohol (Ethanol) (03/06/17 13:39) Salicylates (Aspirin) (03/06/17 13:39) Tylenol (Acetaminophen) (03/06/17 13:39) [place] (Li) (03/06/17 13:42) Diet Regular Basic (03/06/17 Dinner) Carvedilol (Coreg) (03/06/17 21:00) Glipizide (Glucotrol) (03/07/17 07:00) [place] Carbonate ([place] Carbonate) (03/07/17 09:00) Metformin (Glucophage) (03/07/17 09:00) Trazodone (Desyrel) (03/06/17 21:30) Quetiapine (Seroquel) (03/06/17 21:30) Clopidogrel (Plavix) (03/07/17 08:15) Diet Regular Basic (03/07/17 Breakfast) Diet Regular Basic (03/07/17 Lunch) Ed Discharge Order (03/07/17 13:12) Labs Laboratory Tests Test 03/06/17 13:45 03/06/17 14:00 White Blood Count 12.3 TH/MM3 Red Blood Count 5.27 MIL/MM3 Hemoglobin 16.8 GM/DL Hematocrit 49.5 % Mean Corpuscular Volume 93.9 FL Mean Corpuscular Hemoglobin 31.8 PG Mean Corpuscular Hemoglobin Concent 33.9 % Red Cell Distribution Width 13.4 % Platelet Count 325 TH/MM3 Mean Platelet Volume 8.1 FL Neutrophils (%) (Auto) 63.6 % Lymphocytes (%) (Auto) 28.8 % Monocytes (%) (Auto) 6.0 % Eosinophils (%) (Auto) 0.5 % Basophils (%) (Auto) 1.1 % Neutrophils # (Auto) 7.8 TH/MM3 Lymphocytes # (Auto) 3.5 TH/MM3 Monocytes # (Auto) 0.7 TH/MM3 Eosinophils # (Auto) 0.1 TH/MM3 Basophils # (Auto) 0.1 TH/MM3 CBC Comment DIFF FINAL Differential Comment Blood Urea Nitrogen 4 MG/DL Creatinine 1.06 MG/DL Random Glucose 115 MG/DL Total Protein 8.3 GM/DL Albumin 4.1 GM/DL Calcium Level 9.5 MG/DL Alkaline Phosphatase 98 U/L Aspartate Amino Transf (AST/SGOT) 62 U/L [place] Aminotransferase (ALT/SGPT) 76 U/L Total Bilirubin 0.7 MG/DL Sodium Level 137 MEQ/L Potassium Level 4.2 MEQ/L Chloride Level 103 MEQ/L Carbon Dioxide Level 27.8 MEQ/L Anion Gap 6 MEQ/L Estimat Glomerular Filtration Rate 74 ML/MIN Salicylates Level 3.3 MG/DL Acetaminophen Level LESS THAN 2.0 MCG/ML [place] Level 0.4 MEQ/L Ethyl Alcohol Level LESS THAN 3 MG/DL Urine Opiates Screen NEG Urine Barbiturates Screen NEG Urine Amphetamines Screen NEG Urine Benzodiazepines Screen NEG Urine Cocaine Screen NEG Urine Cannabinoids Screen NEG MDM Medical Record Reviewed: Yes Supervised Visit with CHANO: No Narrative Course Please see previous provider's notes for complete history of present illness. This patient was seen by psychiatry in his Solomon act has been lifted. He reports that yesterday he was just having a "bad day" and he vehemently denies any suicidal or homicidal ideation. He has no medical condition that would warrant additional hospitalization and therefore he is discharged. Diagnosis Primary Impression: Adjustment disorder with mixed disturbance of emotions and conduct Med/Other Pt SpecificInfo: No Change to Meds Scripts Clopidogrel (Plavix) 75 Mg Tab 75 MG PO DAILY for Blood Clot Prevention, #5 TAB 4 Refills Prov: Alfredo Khan MD 03/07/17 Disposition: 01 DISCHARGE HOME Condition: Stable Yassine Zee Mar 07, 2017 13:14
== END 2017-03-07 15:16 | disposition home or self-care (01) ==
LOC: NEPD 13:18 → NEPJ 03-07 15:16
DX: F43.25 Adjustment disorder with mixed disturbance of emotions and conduct (principal); E11.9 Type 2 diabetes mellitus without complications; I10 Essential (primary) hypertension; F17.200 Nicotine dependence, unspecified, uncomplicated; Z79.02 Long term (current) use of antithrombotics/antiplatelets; Z79.84 Long term (current) use of oral hypoglycemic drugs; Z79.899 Other long term (current) drug therapy
CPT/HCPCS: 80053; 80178; 80307; 85025; 99284